=== PATIENT | male | born 1980 | race African-American/Black ===

== ENCOUNTER 2024-11-05 08:32 | Emergency (ER) | payer OTHER ==
[~2024-11-05] VITALS: Ht 183.5 cm; Wt 67.8 kg
[2024-11-05 08:47] VITALS: BP 146/100; PULSE 89; RESP 19; TEMP 98.5; O2SAT 99
[2024-11-05 09:16] LABS: COVID AG,FIA SOURCE NASAL SWAB
[2024-11-05 09:36] LABS: RAPID GROUP A STREP NEGATIVE (NEGATIVE)
[2024-11-05 09:41] LABS: INFLUENZA TYPE A NEGATIVE FOR TYPE A (NEGATIVE); INFLUENZA TYPE B NEGATIVE FOR TYPE B (NEGATIVE); SARS-COV2 (COVID) ANTIGEN,FIA Negative (Negative)
[2024-11-05 09:45] LABS: BASOPHILS % (AUTO) 0.8 % (0.0-2.0); HEMATOCRIT 44.4 % (41-53); HEMOGLOBIN 14.7 g/dL (13.5-17.5); LYMPHOCYTES # (AUTO) 0.9 K/uL (1.0-4.8); LYMPHOCYTES % (AUTO) 19.7 % (22.0-44.0); MEAN CORPUSCULAR HEMOGLOBIN 29.9 pg (26.0-34.0); MEAN CORPUSCULAR VOLUME 91 fL (80-100); MONOCYTES # (AUTO) 0.6 K/uL (0.1-1.0); MONOCYTES % (AUTO) 11.8 % (2.0-9.0); NEUTROPHILS # (AUTO) 3.1 K/uL (1.8-7.7); NEUTROPHILS % (AUTO) 65.7 % (40.0-70.0); PLATELET COUNT (AUTO) 192 K/uL (150-450); RED BLOOD CELL COUNT(AUTO) 4.91 MIL/uL (4.50-5.90); WHITE BLOOD COUNT (AUTO) 4.7 K/uL (4.5-11.0)
[2024-11-05 10:02] LABS: TROPONIN I-HIGH SENSITIVITY Less Than 4 ng/L (<76)
[2024-11-05 10:06] LABS: B-TYPE NATRIURETIC PEPTIDE 9 pg/mL (0-100)
== END 2024-11-05 12:04 | disposition home or self-care (01) ==
LOC: EMS 08:36
DX: R00.2 Palpitations (principal); R07.89 Other chest pain; G43.909 Migraine, unspecified, not intractable, without status migrainosus; Z20.822 Contact with and (suspected) exposure to COVID-19
CPT/HCPCS: 83880; 84484; 85025; 87430; 87804; 93005; 99284